=== PATIENT | female | born 1955 | race Caucasian/White ===

== ENCOUNTER 2016-05-18 08:04 | Outpatient (CLI) | payer MEDICAID | END 2016-05-18 08:05 | disposition home or self-care (01) | DX: M81.0 Age-related osteoporosis without current pathological fracture (principal) ==

== ENCOUNTER 2016-08-12 08:53 | Outpatient (CLI) | payer MEDICAID ==
[2016-08-12 12:08] LABS: BASOPHILS % (AUTO) 0.8 %; EOSINOPHILS # (AUTO) 0.1 10^3/uL (0.0-0.7); EOSINOPHILS % (AUTO) 2.8 %; HCT - HEMATOCRIT 39.2 % (37.0-47.0); HGB - HEMOGLOBIN 13.3 g/dL (12.0-16.0); LYMPHOCYTES # (AUTO) 1.4 10^3/uL (1.5-3.5); LYMPHOCYTES % (AUTO) 38.7 %; MEAN CORPUSCULAR HEMOGLOBIN 28.1 pg (27.0-31.0); MEAN CORPUSCULAR HGB CONC 33.8 g/dL (32.0-36.0); MEAN CORPUSCULAR VOLUME 83.1 fL (81.0-99.0); MEAN PLATELET VOLUME 8.5 fL (7.9-10.8); MONOCYTES # (AUTO) 0.3 10^3/uL (0.0-1.0); MONOCYTES % (AUTO) 9.4 %; NEUTROPHILS # (AUTO) 1.8 10^3/uL (1.5-6.6); NEUTROPHILS % (AUTO) 48.3 %; NUCLEATED RED BLOOD CELLS AUTO 0.2 /100WBC; RED BLOOD COUNT 4.72 10^6/uL (4.20-5.40); RED CELL DISTRIBUTION WIDTH 13.2 % (12.0-15.0); UNCORRECTED WHITE BLOOD COUNT 3.7 x10^3/uL; WHITE BLOOD COUNT 3.7 x10^3/uL (4.8-10.8)
[2016-08-12 12:33] LABS: ALBUMIN/GLOBULIN RATIO 1.8 (1.0-2.2); BILIRUBIN,TOTAL 0.7 mg/dL (0.2-1.0); BUN - BLOOD UREA NITROGEN 16 mg/dL (6-20); CALCIUM 9.1 mg/dL (8.5-10.3); CARBON DIOXIDE - CO2 28 mmol/L (21-32); CHLORIDE 104 mmol/L (101-111); CHOL/HDL RATIO 3.6 (<4.4); CHOLESTEROL 231 mg/dL; CREATININE 0.6 mg/dL (0.4-1.0); GFR - MDRD 103 (>89); GLUCOSE 102 mg/dL (70-100); HDL CHOLESTEROL 64 mg/dL; LDL/HDL RATIO 2.3 (<4.4); POTASSIUM 4.3 mmol/L (3.5-5.0); SODIUM 139 mmol/L (135-145); TOTAL PROTEIN 6.7 g/dL (6.7-8.2); TRIGLYCERIDES 114 mg/dL; VLDL CHOLESTEROL 23 mg/dL
== END 2016-08-12 08:54 | disposition home or self-care (01) ==
LOC: LAB.F 08:53
PROVIDERS: ATTEND Family Medicine
DX: I10 Essential (primary) hypertension (principal); E78.5 Hyperlipidemia, unspecified
CPT/HCPCS: 36415; 80053; 80061; 85025

== ENCOUNTER 2016-11-02 13:41 | Outpatient (CLI) | payer MEDICAID ==
--- NOTE | 2016-11-03 16:54 | Mammography Report ---
DIGITAL SCREENING MAMMOGRAM: 11/02/2016 CLINICAL INDICATION: A 60-year-old nulliparous patient with history of bilateral reduction, for cary bansal. COMPARISON: 10/2015, 09/2014, 07/2013, 06/2012, 06/2011, 05/2010, 05/2009. TECHNIQUE: Routine CC and MLO projections were obtained of the breasts. FINDINGS: The breasts again demonstrate scattered fibroglandular densities bilaterally. Postreductio n changes are stable. Punctate, typically benign calcifications are present. No suspicious masses, cl ustered microcalcifications, or regions of architectural distortion are identified. IMPRESSION: BENIGN FINDINGS. RECOMMENDATION: ROUTINE ANNUAL SCREENING UNLESS OTHERWISE CLINICALLY INDICATED. BIRADS CATEGORY 2-BENIGN FINDINGS. STANDARD QUALIFYING STATEMENTS 1. This examination was reviewed with the aid of Computer-Aided Detection (CAD). 2. A negative or benign imaging report should not delay biopsy if clinically suspicious findings are present. Consider surgical consultation if warranted. More than 5% of cancers are not identified by i maging. 3. Dense breasts may obscure an underlying neoplasm. JOB #: [id number] EXT JOB #:[id number]
== END 2016-11-02 13:42 | disposition home or self-care (01) ==
LOC: DI 13:41
PROVIDERS: ATTEND Family Medicine
DX: Z12.31 Encounter for screening mammogram for malignant neoplasm of breast (principal)
CPT/HCPCS: 77067

== ENCOUNTER 2017-09-10 14:50 | Emergency (ER) | payer MEDICAID ==
[2017-09-10] MEDS ORDERED: TETANUS/DIPHTHERIA/PERTUSSIS 0.5 ML SYRINGE IM ONE (14:58)
[2017-09-10] MEDS ORDERED: BUFFERED LIDOCAINE 10 ML SYRINGE ONE (14:59)
--- NOTE | 2017-09-10 15:01 | ED Physician Documentation ---
PD HPI UPPER EXT INJURY - Stated complaint Stated Complaint: L FINGER LAC - Chief complaint Chief Complaint: Laceration - History obtained from History obtained from: Patient - History of Present Illness Location: Left (61-year-old woman with unknown tetanus status, right-handed, cut herself on the left index finger while sharpening a hatchet at home just prior to arrival.) Review of Systems Constitutional: reports: Reviewed and negative Throat: reports: Reviewed and negative Cardiac: reports: Reviewed and negative PD PAST MEDICAL HISTORY - Past Medical History Cardiovascular: Hypertension, Other Respiratory: None Endocrine/Autoimmune: None GI: GERD, Hiatal hernia, Colon polyps : None HEENT: None Psych: Anxiety, Other Musculoskeletal: Osteoarthritis Derm: None - Past Surgical History Past Surgical History: Yes General: Colonoscopy, EGD - Present Medications Home Medications: Ambulatory Orders Medication Instructions Recorded Confirmed Cyclobenzaprine [Flexeril] 5 mg PO 09/10/17 PARoxetine [Paxil] 09/10/17 - Allergies Allergies/Adverse Reactions: Allergies Allergy/AdvReac Type Severity Reaction Status Date / Time No Known Drug Allergies Allergy Verified 09/10/17 14:57 - Social History Does the pt smoke?: No Smoking Status: Never smoker PD ED PE NORMAL - Vitals Vital signs reviewed: Yes - General General: Alert and oriented X 3, No acute distress - Extremities Extremities: Other (On the tip of the left index finger there is a 2 cm curvilinear laceration Not involving the nailbed, she has normal neurovascular function of the tip.) - Neuro Neuro: Alert and oriented X 3, Normal speech - Psych Psych: Normal mood, Normal affect Results - Vitals Vitals: Vital Signs - 24 hr 09/10/17 09/10/17 14:56 15:02 Temperature 36.5 C Heart Rate 84 Respiratory 15 Rate Blood Pressure 181/102 H 165/109 H O2 Saturation 95 Oxygen O2 Source Room air Procedures - Laceration (location) L 2nd finger Length in cm: 2 Wound type: Linear, Curved Neurovascular status: Sensory intact, Motor intact, Vascular intact Anesthesia: Lidocaine 1%, With bicarb Wound Preparation: Hibiclens, Irrigated copiously NS Skin layer closure: Nylon, Interrupted, Size #-0 - enter number (4-0), Sutures - enter # (7) Other: Patient tolerated well, No complications, Neurovascular intact, Tetanus booster given Complexity: Simple PD MEDICAL DECISION MAKING - Sepsis Event Vital Signs: Vital Signs - 24 hr 09/10/17 09/10/17 14:56 15:02 Temperature 36.5 C Heart Rate 84 Respiratory 15 Rate Blood Pressure 181/102 H 165/109 H O2 Saturation 95 Oxygen O2 Source Room air Departure - Departure Disposition: 01 Home, Self Care Clinical Impression: Laceration Condition: Good Record reviewed to determine appropriate education?: Yes Instructions: ED Laceration Hand Comments: Come back for any signs of infection which would include: Redness, swelling, drainage, increased pain, or fevers. Follow-up with your physician in About 14 days for suture removal. Your blood pressure was elevated today on check into the emergency department. This does not mean that you have hypertension, it is a common phenomenon to come to the emergency department and have elevated blood pressure. I recommend that you see your primary care physician within the week to have it rechecked when you are feeling better.
[2017-09-10 15:34] VITALS: BP 140/92
== END 2017-09-10 15:50 | disposition home or self-care (01) ==
LOC: ED 14:50
DX: S61.211A Laceration without foreign body of left index finger without damage to nail, initial encounter (principal); I10 Essential (primary) hypertension; W27.8XXA Contact with other nonpowered hand tool, initial encounter; Y93.89 Activity, other specified; Y92.009 Unspecified place in unspecified non-institutional (private) residence as the place of occurrence of the external cause
CPT/HCPCS: 12001; 90471; 99283

== ENCOUNTER 2018-01-20 13:31 | Outpatient (CLI) | payer MEDICAID ==
--- NOTE | 2018-01-23 18:18 | Mammography Report ---
Reason: SCREENING MAMMO Procedure Date: 01/20/2018 Accession Number: [id number] / [id number] Procedure: [facility] - Screening Mammo w/Grey CPT Code: FULL RESULT: EXAM: Screening Mammo w/Grey DATE: 01/20/2018 1:53 PM CLINICAL HISTORY: Screening. Family history maternal aunt age 80 mother at age 72. TECHNIQUE: Bilateral CC and MLO views were obtained. COMPARISON: 11/02/2016 through 08/03/2013 FINDINGS: The breasts demonstrate scattered fibroglandular densities bilaterally. Bilateral breasts: There are stable operative changes of prior reduction mammoplasty bilaterally. There are no suspicious masses, calcifications or areas of distortion. IMPRESSION: Benign findings RECOMMENDATION: Routine annual screening unless otherwise clinically indicated. BI-RADS CATEGORY 2: Benign findings STANDARD QUALIFYING STATEMENTS: 1. This examination was not reviewed with the aid of Computer-Aided Detection (CAD). 2. A negative or benign imaging report should not preclude biopsy if clinically suspicious findings are present. 3. Dense breasts may obscure an underlying neoplasm. 4. This examination was reviewed with the aid of 3D breast imaging (tomosynthesis).
== END 2018-01-20 13:32 | disposition home or self-care (01) ==
LOC: DI 13:31
DX: Z12.31 Encounter for screening mammogram for malignant neoplasm of breast (principal); Z80.3 Family history of malignant neoplasm of breast
CPT/HCPCS: 77063; 77067

== ENCOUNTER 2018-01-25 08:00 | Outpatient (CLI) | payer MEDICAID ==
[2018-01-25 18:18] LABS: BASOPHILS % (AUTO) 0.7 %; EOSINOPHILS # (AUTO) 0.1 10^3/uL (0.0-0.7); HGB - HEMOGLOBIN 14.3 g/dL (12.0-16.0); LYMPHOCYTES # (AUTO) 1.2 10^3/uL (1.5-3.5); LYMPHOCYTES % (AUTO) 35.7 %; MEAN CORPUSCULAR VOLUME 87.8 fL (81.0-99.0); MEAN PLATELET VOLUME 8.6 fL (7.9-10.8); MONOCYTES # (AUTO) 0.3 10^3/uL (0.0-1.0); MONOCYTES % (AUTO) 8.6 %; NEUTROPHILS # (AUTO) 1.7 10^3/uL (1.5-6.6); PLT - PLATELET COUNT 178 10^3/uL (130-450); RED BLOOD COUNT 4.94 10^6/uL (4.20-5.40); RED CELL DISTRIBUTION WIDTH 12.9 % (12.0-15.0); WHITE BLOOD COUNT 3.3 x10^3/uL (4.8-10.8)
[2018-01-25 18:27] LABS: HB2 TOTAL 14.4 g/dL; HEMOGLOBIN A1C 0.52 g/dL; HEMOGLOBIN A1C % 5.5 % (4.6-6.2)
[2018-01-25 18:47] LABS: ALBUMIN 4.4 g/dL (3.2-5.5); ALBUMIN/GLOBULIN RATIO 1.8 (1.0-2.2); ALKALINE PHOSPHATASE 68 IU/L (42-121); ALT ALANINE AMINOTRANSFERASE 27 IU/L (10-60); AST ASPARTATE AMINOTRANSFERASE 26 IU/L (10-42); BILIRUBIN,TOTAL 0.9 mg/dL (0.2-1.0); BUN - BLOOD UREA NITROGEN 16 mg/dL (6-20); CALCIUM 8.9 mg/dL (8.5-10.3); CARBON DIOXIDE - CO2 28 mmol/L (21-32); CHLORIDE 102 mmol/L (101-111); CHOL/HDL RATIO 3.3 (<4.4); CHOLESTEROL 254 mg/dL; CREATININE 0.6 mg/dL (0.4-1.0); GFR - MDRD 102 (>89); GLUCOSE 106 mg/dL (70-100); HDL CHOLESTEROL 77 mg/dL; LDL CHOLESTEROL,CALCULATED 152 mg/dL; SODIUM 137 mmol/L (135-145); TOTAL PROTEIN 6.9 g/dL (6.7-8.2); VLDL CHOLESTEROL 25 mg/dL
== END 2018-01-25 08:01 | disposition home or self-care (01) ==
LOC: LAB.F 08:00
PROVIDERS: ATTEND Family Medicine
DX: Z00.00 Encounter for general adult medical examination without abnormal findings (principal); E78.5 Hyperlipidemia, unspecified; I10 Essential (primary) hypertension
CPT/HCPCS: 36415; 80053; 80061; 83036; 83721; 84443; 85025

== ENCOUNTER 2020-08-17 16:00 | Outpatient (CLI) | payer BC | END 2020-08-17 23:59 | disposition home or self-care (01) | LOC: LAB.S 16:00 | PROVIDERS: ATTEND Physician Assistant | DX: J40 Bronchitis, not specified as acute or chronic (principal); Z20.822 Contact with and (suspected) exposure to COVID-19 ==

== ENCOUNTER 2020-12-31 10:51 | Emergency (ER) | payer BC ==
[2020-12-31] MEDS ORDERED: HYDROmorphone 1 MG/ML CARPUJECT IM STA (11:39)
--- NOTE | 2020-12-31 11:43 | ED Physician Documentation ---
History of Present Illness - Stated complaint Stated Complaint: R HIP, LOWER BACK SPASM PAIN - Chief complaint Chief Complaint: Ext Problem - Additonal information Additional information: 65-year-old female presents the emergency department for evaluation of acute on chronic right low back pain. Reports that for more than 10 years she has had chronic right low back pain that will often flare. She has had no falls or trauma. No fevers. No saddle anesthesia. No history of injection drug use or personal history of cancer. She reports that she is in the process of moving her home from [place] to [place] and has been moving boxes recently but does not remember any acute inciting event. Due to the back pain she spent most of the day in bed yesterday and woke up today with worsening pain. She reports tightness and spasm across her right side of the back. She is ambulating with a cane but often feels as though her leg will go weak. She Does have some mild numbness in the right lateral thigh. It does not extend below the knee. MRI of the back last completed in 2012. Review of Systems Constitutional: denies: Fever, Chills Eyes: reports: Reviewed and negative Ears: reports: Reviewed and negative Throat: reports: Reviewed and negative Cardiac: reports: Reviewed and negative Respiratory: reports: Reviewed and negative GI: reports: Reviewed and negative Skin: denies: Rash, Lesions Musculoskeletal: reports: Back pain Neurologic: reports: Numbness (Right lateral thigh). denies: Generalized weakness, Focal weakness PD PAST MEDICAL HISTORY - Past Medical History Cardiovascular: Hypertension, Other Respiratory: None Endocrine/Autoimmune: None GI: GERD, Hiatal hernia, Colon polyps : None HEENT: None Psych: Anxiety, Other Musculoskeletal: Osteoarthritis Derm: None - Past Surgical History Past Surgical History: Yes General: Colonoscopy, EGD - Present Medications Home Medications: Ambulatory Orders Medication Instructions Recorded Confirmed Cyclobenzaprine [Flexeril] 5 - 10 mg PO TID PRN 09/10/17 12/31/20 PARoxetine [Paxil] 15 mg ORAL DAILY 09/10/17 12/31/20 Ibuprofen 600 mg PO TID PRN 12/31/20 12/31/20 Naltrexone HCl 50 mg PO HS 12/31/20 12/31/20 Rosuvastatin Calcium [Crestor] 10 mg PO HS 12/31/20 12/31/20 predniSONE [Deltasone] 40 mg PO DAILY 5 Days #10 tablet 12/31/20 - Allergies Allergies/Adverse Reactions: Allergies Allergy/AdvReac Type Severity Reaction Status Date / Time No Known Drug Allergies Allergy Verified 12/31/20 10:55 - Social History Does the pt smoke?: No Smoking Status: Never smoker Does the pt drink ETOH?: Yes Does the pt have substance abuse?: No - Immunizations Immunizations are current?: No Immunizations: TDAP >10years/unknown PD ED PE EXPANDED - General General: Alert, No acute distress - Cardiac Cardiac: Regular Rate, Radial strong equal, Pedal strong equal, Cap refill < 2 sec - Respiratory Respiratory: Clear to ausultation lloyd. No: Distress, Labored - Abdomen Abdomen: Normal Bowel sounds. No: Tender to palpation - Back Back: Soft tissue tenderness (Soft tissue tenderness across the right lower lumbar paraspinous region. Reduced forward flexion of the lumbar spine. No midline vertebral body tenderness. No rash erythema or swelling. Motor strength 5 of 5 bilateral lower extremities. Mildly antalgic gait using a Cane), Limited ROM (Forward flexion lower lumbar spine). No: Vertebral tenderness, Straight leg raise + R, Straight leg raise + L, CVA TTP right, CVA TTP left Results - Vitals Vitals: Vital Signs - 24 hr 12/31/20 10:57 Temperature 36.7 C Heart Rate 83 Respiratory 16 Rate Blood Pressure 167/90 H O2 Saturation 94 Oxygen O2 Source Room air PD MEDICAL DECISION MAKING - ED course Complexity details: considered differential, d/w patient ED course: 65-year-old female presents the emergency department with acute on chronic right low back pain. She has history of back pain that extends more than the last 10 to 15 years. This is an exacerbation of her typical pain. However given her age I did offer CT imaging of the lumbar spine. The patient however declined that at this time. She would like a prescription for steroids which she has felt to be beneficial in the past. No other acute red flags such as saddle anesthesia, fevers, bowel or bladder incontinence. Overall the back pain is reproducible and reassuring. 5-day prescription of prednisone will be sent to the pharmacy. Patient declined narcotics. She has Flexeril and ibuprofen at home. Emergent return precautions otherwise discussed. Departure - Departure Disposition: 01 Home, Self Care Clinical Impression: Right low back pain Qualifiers: Chronicity: unspecified Sciatica presence: without sciatica Qualified Code(s): M54.50 - Low back pain, unspecified Condition: Stable Record reviewed to determine appropriate education?: Yes Instructions: ED Back Spasm No Trauma Ch Prescriptions: predniSONE [Deltasone] 40 mg PO DAILY 5 Days #10 tablet Comments: I hope that your back is feeling better soon. You have likely exacerbated or sprained your lower lumbar muscles with the new moving that you are doing. I wish you luck as you transition to [place]. Lets have you take a 5-day course of prednisone. This has been sent to the pharmacy in [facility] with right aid. I do recommend that you continue the muscle relaxer. Gentle stretching and moving as much as you are able should help reduce the spasm in your low back. You were offered a CT scan of your lumbar spine today but that was declined. However if your symptoms worsen, you develop fevers, weakness in your legs, you lose control of your bowel or bladder function then please return immediately to the ER for repeat evaluation. When you do return to [place] I recommend you follow-up closely with your primary care provider. Referral to physical therapy and/or reevaluation of your back with an MRI may be indicated.
[2020-12-31 12:25] VITALS: BP 129/84
== END 2020-12-31 12:28 | disposition home or self-care (01) ==
LOC: ED 10:51
DX: M54.50 Low back pain, unspecified (principal); G89.29 Other chronic pain
CPT/HCPCS: 99283; 99284; J1170